=== PATIENT | male | born 1995 | race Caucasian/White ===

== ENCOUNTER 2019-06-19 22:55 | Emergency (ER) | payer OTHER ==
[~2019-06-19] VITALS: Ht 180.3 cm; Wt 82.6 kg
== END 2019-06-20 01:21 | disposition home or self-care (01) ==
LOC: ER 22:55
DX: S61.422A Laceration with foreign body of left hand, initial encounter (principal); W26.0XXA Contact with knife, initial encounter; Y93.89 Activity, other specified; Y92.090 Kitchen in other non-institutional residence as the place of occurrence of the external cause; Y99.8 Other external cause status

== ENCOUNTER 2019-06-23 01:26 | Emergency (ER) | payer OTHER ==
[~2019-06-23] VITALS: Ht 180.3 cm; Wt 82.6 kg
== END 2019-06-23 04:17 | disposition home or self-care (01) ==
LOC: ER
DX: T81.33XA Disruption of traumatic injury wound repair, initial encounter (principal)

== ENCOUNTER 2019-07-03 13:13 | Emergency (ER) | payer OTHER ==
[~2019-07-03] VITALS: Ht 180.3 cm; Wt 83.0 kg
== END 2019-07-03 18:11 | disposition home or self-care (01) ==
LOC: ER 13:13
DX: Z48.02 Encounter for removal of sutures (principal)